=== PATIENT | female | born 1975 | race Caucasian/White ===

== ENCOUNTER 2018-02-02 14:35 | Emergency (ER) | payer SELFPAY ==
[~2018-02-02] VITALS: Ht 162.6 cm; Wt 75.0 kg
[~2018-02-02 14:35] MED LIST: CLIN150 PO; METH10TA PO
[2018-02-02 14:48] VITALS: BP 109/65; PULSE 67; RESP 15; TEMP 98.4; O2SAT 98
[2018-02-02] MEDS ORDERED: IBUP1TAB7 PO (16:04)
[2018-02-02] MEDS ORDERED: MAGICPED SWISH-SWAL (16:04)
[2018-02-02] MEDS ORDERED: AMOX500C PO (16:04)
--- NOTE | 2018-02-02 16:05 | PD ---
HPI Chief Complaint: ENT Complaint Time Seen by Provider: 15:57 Travel History International Travel<30 days: No Contact w/Intl Traveler<30days: No Traveled to known affect area: No History of Present Illness HPI 42-year-old female presents to emergency department with complaint of sore throat 2 weeks. Reports bilateral ear pain. Reports T-max of 101.0. Says she saw some pustules to the back of her throat a few days ago. Reports vomiting 2 in the past couple days. Denies nasal congestion, cough. Denies lump in throat, difficulty swallowing, unusual drooling. Reports painful swallowing. Reports burning sensation in the back of her throat. Symptoms are mild in severity. Taking ibuprofen for symptom management. Allergies to sulfa. History of hepatitis C. Denies other significant past medical history. Has a primary care provider she can follow-up with. Has no other medical complaints. No other modifying factors or associated signs and symptoms. PFSH Past Medical History ?: Not Social History Tobacco Use: No Allergies-Medications (Allergen,Severity, Reaction): Coded Allergies: Sulfa (Sulfonamide Antibiotics) (Verified Allergy, Severe, Anaphylaxis, ) Reported Meds & Prescriptions Reported Meds & Active Scripts Active Magic Mouthwash Pediatric/Adult Liq (Lidocaine/Diphenhydr/Alum/Mg/Simeth) 60 Ml Susp 5 Ml SWISH-SWAL Q3HR PRN Each 5mL contains: Diphenydramine 4.5mg, Viscous Lidocaine 2% 10mg, Maalox Advanced Regular Strength 2.7ml Ibuprofen 800 Mg Tab 800 Mg PO Q6HR PRN Amoxicillin 500 Mg Cap 500 Mg PO BID 10 Days Cleocin (Clindamycin HCl) 150 Mg Cap 2 Tab PO QID 7 Days Reported Methadone HCl (Methadone Hcl) 10 Mg Tab 95 Mg PO DAILY Review of Systems Except as stated in HPI: all other systems reviewed are Neg Physical Exam Narrative GENERAL: Well-nourished, well-developed feet patient, in no acute distress; afebrile, nontoxic-appearing SKIN: Warm and dry. No rash. HEAD: Atraumatic. Normocephalic. EYES: Pupils equal and round. No scleral icterus. No injection or drainage. ENT: Mucosa pink and moist. Oropharynx with erythema; without edema or exudates. No uvular edema. No uvular, palatal, or tonsillar deviation. Airway patent. EARS: Bilateral pinnae and external canals appear within normal limits. Bilateral tympanic membranes without erythema, dullness or perforation. NECK: Trachea midline. Anterior cervical lymphadenopathy and tenderness on palpation. CARDIOVASCULAR: Regular rate. RESPIRATORY: No accessory muscle use. GASTROINTESTINAL: Flat. MUSCULOSKELETAL: No obvious deformities. No clubbing. No cyanosis. No edema. NEUROLOGICAL: Awake and alert. Oriented 3. No obvious cranial nerve deficits. Motor grossly within normal limits. Normal speech. Moves all extremities. 5/5 strength to all extremities. PSYCHIATRIC: Appropriate mood and affect; insight and judgment normal. Data Data Last Documented VS Vital Signs Date Time Temp Pulse Resp B/P (MAP) Pulse Ox O2 Delivery O2 Flow Rate FiO2 02/02/18 14:48 98.4 67 15 109/65 (80) 98 Orders Orders Ed Discharge Order (02/02/18 16:05) [facility] Medical Decision Making Medical Screen Exam Complete: Yes Emergency Medical Condition: Yes Medical Record Reviewed: Yes Differential Diagnosis Sore throat, strep pharyngitis, viral pharyngitis, less likely peritonsillar abscess Narrative Course 42-year-old female with sore throat 2 weeks. Patient is afebrile and nontoxic- appearing. Reports T-max of 101.0. And patient is requesting antibiotics for treatment. I will treat with antibiotics secondary to patient request, length of illness and report of fever. Amoxicillin, ibuprofen administered in the ER. Amoxicillin, ibuprofen, Magic mouthwash prescribed for home. Instructed patient to follow up with primary care provider. Patient verbalizes understanding and agreement with treatment plan. Patient is medically cleared and stable for discharge. Discussed reasons to return to the emergency department. Patient agrees with treatment plan. The patients vital signs are stable and the patient is stable for outpatient follow-up and treatment. Patient discharged home, stable and in no acute distress. Diagnosis Primary Impression: Pharyngitis Qualified Codes: J02.9 - Acute pharyngitis, unspecified Referrals: Primary Care Physician Patient Instructions: General Instructions, Pharyngitis (ED) Additional Instructions: Take Antibiotics as prescribed and complete full course of antibiotics Throw away and change your toothbrush 24 hours after starting antibiotics Get plenty of sleep/rest Rest your voice Drink plenty of fluids to prevent dehydration Use warm saltwater gargles to soothe throat pain Use an air humidifier/turn off ceiling fans Use throat lozenges as needed for sore throat Use ibuprofen or acetaminophen as needed to relieve pain and fever Follow-up with your primary care provider within 2-4 days Return immediately to the emergency department with worsening of symptoms Med/Other Pt SpecificInfo: Prescription(s) given Scripts Wfacohnuqeqtnbp-Qcydaacdn-Bas-Alum-Simeth Liq (Magic Mouthwash Pediatric/Adult Liq) 60 Ml Susp 5 ML SWISH-SWAL Q3HR Y for SORE THROAT, #60 ML 0 Refills Each 5mL contains: Diphenydramine 4.5mg, Viscous Lidocaine 2% 10mg, Maalox Advanced Regular Strength 2.7ml Prov: Chantale Gonzalez 02/02/18 Ibuprofen (Ibuprofen) 800 Mg Tab 800 MG PO Q6HR Y for PAIN, #30 TAB 0 Refills Prov: Chantale Gonzalez 02/02/18 Amoxicillin (Amoxicillin) 500 Mg Cap 500 MG PO BID for Infection for 10 Days, #20 CAP 0 Refills Prov: Chantale Gonzalez 02/02/18 Disposition: 01 DISCHARGE HOME Condition: Stable Chantale Gonzalez Feb 02, 2018 16:05
== END 2018-02-02 16:20 | disposition home or self-care (01) ==
LOC: NEPK 14:35
DX: J02.9 Acute pharyngitis, unspecified (principal); H92.03 Otalgia, bilateral; R11.10 Vomiting, unspecified; Z86.19 Personal history of other infectious and parasitic diseases; Z88.2 Allergy status to sulfonamides; Z79.899 Other long term (current) drug therapy
CPT/HCPCS: 99283